=== PATIENT | female | born 2000 | race Caucasian/White ===

== ENCOUNTER → 2018-11-15 14:55 | Outpatient (CLI) | payer BC, SELFPAY ==
--- NOTE | 2018-11-15 15:02 | US_ITS ---
US transvaginal HISTORY: Dysfunctional uterine bleeding ITS.REASON: IRREGULAR PERIODS ORDERING PHYSICIAN: TRAM Aly PATIENT AGE: 18 years Comparison: None FINDINGS: The uterus is 6.4 x 2.4 x 3.6 cm with a combined endometrial thickness of 5 mm the uterus has an unremarkable appearance. The left ovary is 3.2 x 2.5 x 2.6 cm and has an estimated volume of 9.9 mL's with multiple small follicles . The right ovary is 4.5 x 2.3 x 2.7 cm and has multiple small follicles largest a 12 mm. Right ovarian volume is 14.5 mL's There is a small amount of cul-de-sac fluid. IMPRESSION: 1. Polycystic appearance of the ovaries. 2. Unremarkable appearing uterus. 3. Small amount of fluid in the cul-de-sac
== END ==
PROVIDERS: PCP Physician Assistant; Referring Provider Physician Assistant; Visit Provider Physician Assistant
DX: N92.6 Irregular menstruation, unspecified (principal)
CPT/HCPCS: 76830

== ENCOUNTER → 2018-12-22 17:01 | Outpatient (CLI) | payer BC, SELFPAY ==
[2018-12-25 18:03] LABS: Neisseria gonorrhoeae, NAA Negative (Negative)
== END ==
PROVIDERS: Visit Provider Obstetrics & Gynecology
DX: Z72.51 High risk heterosexual behavior (principal); N92.6 Irregular menstruation, unspecified
CPT/HCPCS: 87491; 87591

== ENCOUNTER 2019-01-08 16:59 | Observation (INO) ==
--- NOTE | 2019-01-08 17:16 | Emergency Department Note ---
ED Disposition Clinical Impression: Nausea vomiting and diarrhea, Intractable vomiting, Dehydration Disposition: Still a Patient Condition on Discharge: Fair - Critical Care Critical Care Time: No Attestation: On , the high probability of a clinically significant, sudden or life threatening deterioration of the following system(s) required my full and direct attention, intervention and personal management. The time I documented below is in addition to time spent performing reported procedures but includes the following listed in this critical care notation. Medical Decision Making - Travis Inquiry Pt receiving controlled substance: No Travis was queried for this patient: No Vital Signs: 01/08/19 17:10 Temperature 97.9 F Temperature Source Temporal Artery Scan Pulse Rate [Right Brachial] 63 Respiratory Rate 17 Blood Pressure [Right Arm] 131/63 Blood Pressure Mean [Right Arm] 85 Blood Pressure Source [Right Arm] Automatic Cuff Blood Pressure Position [Right Arm] Sitting 02 Sat by Pulse Oximetry 100 Oxygen Delivery Method Room Air - Lab Data Lab Results 01/08/19 17:17: WBC 12.5, RBC 5.21, Hgb 14.6, Hct 45.0, MCV 86.3, MCH 28.0, MCHC 32.5, RDW 12.9, Plt Count 281, MPV 8.0, Neut % (Auto) 86.9 H, Lymph % (Auto) 10.6, [place] % (Auto) 2.2, Eos % (Auto) 0.2, Baso % (Auto) 0.2, Neut # (Auto) 10.8 H, Lymph # (Auto) 1.3, [place] # (Auto) 0.3, Eos # (Auto) 0.0, Baso # (Auto) 0.0, Total Counted 100, Neutrophils % (Manual) 87 H, Band Neutrophils % 1.0, Lymphocytes % (Manual) 9 L, Monocytes % (Manual) 3, Platelet Estimate Normal, RBC Morphology Normal 01/08/19 17:17: Sodium 138, Potassium 3.5, Chloride 101, Carbon Dioxide 22, Anion Gap 18.5 H, BUN 13, Creatinine 0.89, Estimated Creat Clear 97, Estimated GFR 81, Est GFR ( Amer) 98, Glucose 115 H, Calcium 9.2, Magnesium 1.7, Total Bilirubin 0.3, AST 18, ALT 25, Alkaline Phosphatase 76, Total Protein 8.0, Albumin 3.9, Globulin 4.1 H, Albumin/Globulin Ratio 1.0 L, Amylase 93, Lipase 89, Plasma/Serum Alcohol 0 01/08/19 17:17: Serum HCG, Qual Negative Result diagrams: 01/08/19 17:17 01/08/19 17:17 Orders (Tests/Meds): ED MEDICATIONS Generic Name Dose Route Start Last Admin Trade Name Freq PRN Reason Stop Dose Admin Sodium Chloride 500 mls @ 999 mls/hr 01/08/19 17:30 01/08/19 17:27 Sod Chlor 0.9% 1000ml Bag IV 01/08/19 18:00 999 mls/hr .Q31M BRAULIO Administration Sodium Chloride 10 ml 01/08/19 17:21 Saline Flush 10ml Syringe IV 02/07/19 17:20 NEEDED PRN Maintain IV Site Discontinued Medications Generic Name Dose Route Start Last Admin Trade Name Freq PRN Reason Stop Dose Admin Diatrizoate Meglum/Diatrizoate Sod 30 ml 01/08/19 17:22 01/08/19 17:46 Gastrografin 66%-10% 30ml PO 01/08/19 17:23 Not Given ONCE ONE Famotidine 20 mg 01/08/19 17:21 01/08/19 17:27 Pepcid 20mg/2ml Vial IV 01/08/19 17:22 20 mg ONCE ONE Administration Ioversol 75 ml 01/08/19 18:14 01/08/19 18:26 Rad-Optiray 350 100ml Vial IV 01/08/19 18:15 75 ml ONCE ONE Administration Protocol Ketorolac Tromethamine 30 mg 01/08/19 17:21 01/08/19 17:27 Toradol 30mg/Ml Vial IV 01/08/19 17:22 30 mg ONCE ONE Administration Ondansetron HCl 4 mg 01/08/19 17:21 01/08/19 17:27 Zofran 4mg/2ml Vial IV 01/08/19 17:22 4 mg ONCE ONE Administration Sodium Chloride 8 ml 01/08/19 17:21 01/08/19 17:27 Saline Flush 10ml Syringe IV 01/08/19 17:22 8 ml ONCE ONE Administration Sodium Chloride 10 ml 01/08/19 18:14 01/08/19 18:26 Rad-Saline Flush 10ml Syringe IV 01/08/19 18:15 10 ml ONCE ONE Administration ORDERS Category Date Time Status CT abdomen pelvis w con Stat Cat Scan 01/08/19 17:22 Taken Drug Screen,Urine Stat Lab 01/08/19 17:19 Ordered Urinalysis and Microscopic Stat Lab 01/08/19 17:19 Ordered Medical Decision Narrative: Although, the patient received Zofran and Phenergan unable to tolerate the p.o. intake. Her CT scan was positive for colitis. To need to be nauseous she was given Reglan with good result but upon attempting p.o. intake she started heaving again. [address] Cruz was covered with Dr. Rios agreed to admit the patient for IV fluid therapy and anti-emetic. Abdominal Pain HPI - General Stated Complaint: vomiting, stomach spasms Time Seen by Provider: 01/08/19 17:13 Mode of Arrival: Ambulatory Source of Information: Patient, Parent(s) Limitations: No Limitations - History of Present Illness HPI narrative: 18 years old white female who developed upper abdominal pain followed by nausea, diarrhea x6 then repeated vomitings more than 10 since 9 AM. The patient had similar episodes in October following a alliance party with her friends and drinking alcohol she denies alcohol use this visit. She describes her pain is sharp rated 8/10 intense in the upper abdomen with no radiation. She is on control pills for irregular periods and Effexor due to anxiety. complaint: abdominal pain Onset (ago): hour(s) Consistency: constant Location: epigastric Severity: moderate Severity scale (1-10): 8 Relieving factors: nothing Exacerbating factors: nothing Associated symptoms: nausea, vomiting, diarrhea Treatments prior to arrival: other - Related Data LMP Date: 11/24/18 Home Medications Medication Instructions Recorded Confirmed drospirenone 3 mg-ethinyl PO #28 tab 12/22/18 12/22/18 estradiol 0.03 mg tablet venlafaxine ER 37.5 mg PO #90 cap 12/22/18 12/22/18 capsule,extended release 24 hr Allergies Allergy/AdvReac Type Severity Reaction Status Date / Time No Known Allergies Allergy Verified 12/22/18 16:13 [facility] History - Hepatitis A Screen Attestation statement:: This patient has been screened for Hepatitis A risk factors. I have reviewed the patient's past medical history: Yes Other Surgeries: Yes: No Previous Surgery - Social History Smoking Status: Current every day smoker Tobacco Type: e-cigarettes Alcohol Intake: current Alcohol Intake Frequency:: holidays/special occasions only Substance Use Type: denies use Occupational Status: employed Family Hx:: Cancer, Coronary Artery Disease, Heart Attack, Thyroid Disorder Comment: COPD ROS Obtained: Yes All systems reviewed & no additional complaints Physical Exam - General General appearance: alert, in no apparent distress - Head Head exam: atraumatic, normocephalic, normal inspection - Eye Eye exam: Present: normal appearance, PERRL, EOMI. Absent: scleral icterus, nystagmus - ENT ENT exam: Present: normal exam, normal oropharynx, mucous membranes dry, TM's normal bilaterally, normal external ear exam - Neck Neck exam: Present: normal inspection, full ROM, trachea midline. Absent: tenderness, meningismus, lymphadenopathy - Chest Chest inspection: Present: normal inspection, symmetric chest wall rise. Absent: tenderness - Respiratory Respiratory exam: Present: normal lung sounds bilaterally. Absent: respiratory distress - Cardiovascular Cardiovascular exam: Present: regular rate, normal rhythm, normal heart sounds. Absent: JVD - Abdominal Exam Abdominal exam: Present: soft, tenderness, normal bowel sounds, other (Voluntary guarding mild epigastric tenderness. ). Absent: distention, guarding, rebound, rigidity, Tobar's sign, tenderness at McBurney's Point - External exam: Present: normal external exam - Extremities Exam Extremities exam: Present: normal inspection, full ROM, normal capillary refill. Absent: calf tenderness - Back Exam Back exam: Present: normal inspection. Absent: tenderness, CVA tenderness (R), CVA tenderness (L) - Neurological Exam Neurological exam: Present: alert, oriented X3, CN II-XII intact, motor sensory deficit, reflexes normal - Psychiatric Psychiatric exam: Present: normal affect, normal mood, anxious - Skin Skin exam: Present: warm, dry, intact, normal color - Lymphatic Lymphatic Findings: no adenopathy
[2019-01-08 17:30] LABS: Basophils % 0.2 % (0.1-2.0); Eosinophils % 0.2 % (0.1-12.0); Hemoglobin 14.6 g/dL (12.2-16.2); Lymphocytes # 1.3 K/mm3 (0.7-4.5); Lymphocytes % 10.6 % (10-50); Mean Corpuscular HGB Conc 32.5 g/dL (31.8-35.4); Mean Corpuscular Volume 86.3 fl (81-99); Monocytes # 0.3 K/mm3 (0.1-1.0); Monocytes % 2.2 % (1.7-9.3); Neutrophils # 10.8 K/mm3 (1.8-7.8); Neutrophils % 86.9 % (37.0-80.0); Platelet Count 281 K/mm3 (142-424); Red Blood Count 5.21 M/mm3 (4.20-5.40); Red Cell Distribution Width 12.9 % (11.5-17.5); White Blood Count 12.5 K/mm3 (4.5-13.0)
[2019-01-08 17:45] LABS: Albumin Level 3.9 gm/dL (3.4-5.0); Anion Gap 18.5 mEq/L (5-15); Bilirubin,Total 0.3 mg/dL (0.2-1.0); Calcium 9.2 mg/dL (8.5-10.1); Globulin 4.1 gm/dl (1.3-3.2)
[2019-01-08 17:53] LABS: Lymphocytes % 9 % (10-50); Monocytes % 3 % (2-9); Neutrophils % 87 % (42-76); RBC Morphology Normal; Total Cells Counted 100
--- NOTE | 2019-01-09 00:07 | History & Physical Report ---
*Admission Date: 01/08/19 *Chief complaint: Nausea vomiting and diarrhea *History of present illness: This 18-year-old white female is admitted with nausea vomiting and diarrhea. Her symptoms started this morning and have continued to the day. Her vomiting became intractable. Her diarrhea was about 5 episodes this morning. She has had no bowel movement since she was admitted to the hospital. She has vomited twice since she came into the hospital. She is not running fever through the day. She denies the possibility of food poisoning though her white blood cell count is slightly elevated. She has not been around large groups of people or traveled with groups of people. She has had some previous episodes in the past of GI distress. Her father has had some GI problems. His history sounds like he may have had sphincter of Oddi dysfunction. [facility] History Medical History: Denies:: Cancer, Diabetes Mellitus Type 1, Diabetes Mellitus Type 2, MRSA *Have you ever received a pneumonia vaccine?: No *Have you received a flu vaccine this season?: No Other Medical History: Reports: Hormone Therapy ( control pills.) Other Surgeries: Yes: No Previous Surgery Amputation: No Fractures: No - *Social History Educational Level: Completed High School Smoking Status: Current every day smoker Tobacco Type: e-cigarettes # Packs/Day (cigarettes): 1 Alcohol Intake: current Alcohol Intake Frequency:: holidays/special occasions only Substance Use Type: denies use *Occupational Status:: employed Housing: house Household Members: family *Travel in the last 8 weeks: None - Psychiatric History Expresses thoughts of harming self/others: None Suicide Plan Description: No Plan Family Hx:: Thyroid Disorder Comment: Father with GI symptoms. Possible sphincter of Oddi dysfunction. Comment: Oral contraception. - Pediatric Specific History Comment: Current on pediatric immunizations. Review of Systems - Constitutional Reports anorexia, Denies fever(s) - Eyes Denies change in vision - *Cardiovascular Denies chest pain - *Gastrointestinal Reports cramping, Reports loose stools, Reports nausea, Denies vomiting blood - *Genitourinary Denies abnormal periods, Denies abnormal vaginal bleeding - *Musculoskeletal Denies joint pain - Integumentary/Breasts Reports unusual bruising (Some bruising of the legs noticed recently.) - Allergic/Immunologic Denies GI upset with certain foods Meds Home Medications Medication Instructions Recorded Confirmed Type drospirenone 3 mg-ethinyl 1 tab PO DAILY #28 tab 12/22/18 01/08/19 History estradiol 0.03 mg tablet venlafaxine ER 37.5 mg 1 tab PO DAILY #90 cap 12/22/18 01/08/19 History capsule,extended release 24 hr Allergies Allergy/AdvReac Type Severity Reaction Status Date / Time No Known Allergies Allergy Verified 12/22/18 16:13 Exam Vital signs and Labs for Last 24 Hours: Temp Pulse Resp BP Pulse Ox 98.5 F 89 17 120/70 98 01/08/19 20:11 01/08/19 20:11 01/08/19 20:11 01/08/19 20:11 01/08/19 20:11 Laboratory Results - last 24 hr 01/08/19 17:17: WBC 12.5, RBC 5.21, Hgb 14.6, Hct 45.0, MCV 86.3, MCH 28.0, MCHC 32.5, RDW 12.9, Plt Count 281, MPV 8.0, Neut % (Auto) 86.9 H, Lymph % (Auto) 10.6, [place] % (Auto) 2.2, Eos % (Auto) 0.2, Baso % (Auto) 0.2, Neut # (Auto) 10.8 H, Lymph # (Auto) 1.3, [place] # (Auto) 0.3, Eos # (Auto) 0.0, Baso # (Auto) 0.0, Total Counted 100, Neutrophils % (Manual) 87 H, Band Neutrophils % 1.0, Lymphocytes % (Manual) 9 L, Monocytes % (Manual) 3, Platelet Estimate Normal, RBC Morphology Normal 01/08/19 17:17: Sodium 138, Potassium 3.5, Chloride 101, Carbon Dioxide 22, Anion Gap 18.5 H, BUN 13, Creatinine 0.89, Estimated Creat Clear 97, Estimated GFR 81, Est GFR ( Amer) 98, Glucose 115 H, Calcium 9.2, Magnesium 1.7, Total Bilirubin 0.3, AST 18, ALT 25, Alkaline Phosphatase 76, Total Protein 8.0, Albumin 3.9, Globulin 4.1 H, Albumin/Globulin Ratio 1.0 L, Amylase 93, Lipase 89, Plasma/Serum Alcohol 0 01/08/19 17:17: Serum HCG, Qual Negative I & O for Last 24 hours: Intake & Output 01/06/19 01/07/19 01/08/19 01/09/19 11:59 11:59 11:59 11:59 Intake Total 1100 / 1100 Balance 1100 / 1100 Weight 137 lb 8 oz - Constitutional no acute distress - *Routine HEENT Exam Head: Present: normocephalic Eye: Present: PERRL ENT: Present: mucous membranes moist - *Routine Neck Exam Present: supple. Absent: thyromegaly, tenderness - Routine Chest/Breast/Axilla Exam Chest wall: Absent: tenderness Axillae: Absent: lymphadenopathy - *Routine Respiratory Exam Present: CTA bilaterally - *Routine Cardiovascular Exam Present: RRR - *Routine Abdominal Exam Present: soft. Absent: tenderness, distended, rebound, guarding - *Routine Rectal Exam Comments: Not done - *Routine Extremities Exam Absent: edema Comments: A few bruises of the thighs and lower legs are noted but nothing very remarkable. No petechial hemorrhage. - *Routine Neurological Exam Present: alert, oriented X3. Absent: altered mental status Assessment and Plan (1) Enterocolitis Current visit: Yes Status: Acute Category: Medical Code(s): K52.9 - Noninfective gastroenteritis and colitis, unspecified (2) Dehydration Current visit: Yes Status: Acute Category: Medical Code(s): E86.0 - Dehydration (3) Intractable vomiting Current visit: Yes Status: Acute Category: Medical Code(s): R11.10 - Vomiting, unspecified (4) Nausea vomiting and diarrhea Current visit: Yes Status: Acute Category: Medical Code(s): R11.2 - Nausea with vomiting, unspecified; R19.7 - Diarrhea, unspecified - Assessment and plan all Dx Assessment and Plan for all problems:: She is feeling much better with IV fluids and treatment with Phenergan and ondansetron. We do not have a diarrhea panel because she has not moved her bowels since admission. She is afebrile. I will hold off at present for antibiotic treatment
[2019-01-09 09:27] LABS: Basophils % 0.2 % (0.1-2.0); Hematocrit 38.1 % (37.0-47.0)
[2019-01-09 09:31] LABS: Anion Gap 13.1 mEq/L (5-15)
[2019-01-09 09:38] LABS: Eosinophils % 0.4 % (0.1-12.0); Lymphocytes # 2.7 K/mm3 (0.7-4.5); Lymphocytes % 31.6 % (10-50); Mean Corpuscular HGB Conc 32.9 g/dL (31.8-35.4); Mean Corpuscular Volume 87.7 fl (81-99); Mean Platelet Volume 7.8 fl (7.4-10.4); Monocytes # 0.6 K/mm3 (0.1-1.0); Monocytes % 6.6 % (1.7-9.3); Neutrophils # 5.3 K/mm3 (1.8-7.8); Neutrophils % 61.1 % (37.0-80.0); Platelet Count 229 K/mm3 (142-424); Red Blood Count 4.34 M/mm3 (4.20-5.40); White Blood Count 8.6 K/mm3 (4.5-13.0)
[2019-01-09 09:40] LABS: Calcium 7.3 mg/dL (8.5-10.1); Hemoglobin 12.5 g/dL (12.2-16.2)
--- NOTE | 2019-01-09 10:32 | Pharmacy Consult Notes ---
[facility] Pharmacy VTE Monitoring - Patient Demographics Admission date: 01/08/19 Report Date: 01/09/19 Time: 10:32 Allergies/Adverse Reactions: Patient Allergies No Known Allergies Allergy (Verified 12/22/18 16:13) Height: 1.7 m Weight: 63.503 kg Patient Problems: Current Active Problems (Updated 01/09/19 @ 00:15 by Chriss Cruz MD) Nausea vomiting and diarrhea (Acute) Intractable vomiting (Acute) Dehydration (Acute) Enterocolitis (Acute) - VTE Risk Labs: VTE Related Lab Results Hgb 12.5 g/dL (12.2-16.2) D 01/09/19 09:12 Hct 38.1 % (37.0-47.0) 01/09/19 09:12 Plt Count 229 K/mm3 (142-424) 01/09/19 09:12 BUN 8 mg/dL (7-18) D 01/09/19 09:12 Creatinine 0.82 mg/dL (0.55-1.02) 01/09/19 09:12 Estimated Creat Clear 110 mL/min (50-200) 01/09/19 09:12 VTE Score: 2 - Prophylaxis VTE Prophylaxis Ordered?: Yes Types of VTE Prophylaxis: TEDS Knee High Location of Applied Device: Bilateral Lower Extremeties - VTE Diagnosis Confirmed Treatment or plan recommended: Continue Current Treatment
--- NOTE | 2019-01-09 13:10 | Progress Note ---
Internal Medicine - PN: Bernardo *Date: 01/09/19 *Time: 13:08 Interval history: She feels much better. She slept. She has not had diarrhea and thus we have not had a PCR panel. Her white blood cell count is normal this morning. Potassium is low at 3.1 and she is given an oral dose of 20 mEq. Exam Vital signs and Labs for Last 24 Hours: Temp Pulse Resp BP Pulse Ox 98.2 F 67 14 92/52 L 98 01/09/19 08:00 01/09/19 08:00 01/09/19 08:00 01/09/19 08:00 01/09/19 08:39 Laboratory Results - last 24 hr 01/08/19 17:17: WBC 12.5, RBC 5.21, Hgb 14.6, Hct 45.0, MCV 86.3, MCH 28.0, MCHC 32.5, RDW 12.9, Plt Count 281, MPV 8.0, Neut % (Auto) 86.9 H, Lymph % (Auto) 10.6, [place] % (Auto) 2.2, Eos % (Auto) 0.2, Baso % (Auto) 0.2, Neut # (Auto) 10.8 H, Lymph # (Auto) 1.3, [place] # (Auto) 0.3, Eos # (Auto) 0.0, Baso # (Auto) 0.0, Total Counted 100, Neutrophils % (Manual) 87 H, Band Neutrophils % 1.0, Lymphocytes % (Manual) 9 L, Monocytes % (Manual) 3, Platelet Estimate Normal, RBC Morphology Normal 01/08/19 17:17: Sodium 138, Potassium 3.5, Chloride 101, Carbon Dioxide 22, Anion Gap 18.5 H, BUN 13, Creatinine 0.89, Estimated Creat Clear 97, Estimated GFR 81, Est GFR ( Amer) 98, Glucose 115 H, Calcium 9.2, Magnesium 1.7, Total Bilirubin 0.3, AST 18, ALT 25, Alkaline Phosphatase 76, Total Protein 8.0, Albumin 3.9, Globulin 4.1 H, Albumin/Globulin Ratio 1.0 L, Amylase 93, Lipase 89, Plasma/Serum Alcohol 0 01/08/19 17:17: Serum HCG, Qual Negative 01/09/19 09:12: WBC 8.6 D, RBC 4.34, Hgb 12.5 D, Hct 38.1, MCV 87.7, MCH 28.9, MCHC 32.9, RDW 13.0, Plt Count 229, MPV 7.8, Neut % (Auto) 61.1, Lymph % (Auto) 31.6, [place] % (Auto) 6.6, Eos % (Auto) 0.4, Baso % (Auto) 0.2, Neut # (Auto) 5.3, Lymph # (Auto) 2.7, [place] # (Auto) 0.6, Eos # (Auto) 0.0, Baso # (Auto) 0.0 01/09/19 09:12: Sodium 145, Potassium 3.1 L, Chloride 110 H, Carbon Dioxide 25, Anion Gap 13.1, BUN 8 D, Creatinine 0.82, Estimated Creat Clear 110, Estimated GFR 89, Est GFR ( Amer) 108, Glucose 119 H, Calcium 7.3 L D I & O for Last 24 hours: Intake & Output 01/07/19 01/08/19 01/09/19 01/10/19 11:59 11:59 11:59 11:59 Intake Total 1100 / 1100 Balance 1100 / 1100 Weight 140 lb - Constitutional no acute distress - *Routine Respiratory Exam Present: CTA bilaterally - *Routine Cardiovascular Exam Present: RRR - *Routine Abdominal Exam Present: soft, normoactive bowel sounds. Absent: tenderness - *Routine Extremities Exam Absent: edema - *Routine Neurological Exam Present: alert, oriented X3 Assessment and Plan (1) Enterocolitis Current visit: Yes Status: Acute Category: Medical Code(s): K52.9 - Noninfective gastroenteritis and colitis, unspecified (2) Dehydration Current visit: Yes Status: Acute Category: Medical Code(s): E86.0 - Dehydration (3) Intractable vomiting Current visit: Yes Status: Acute Category: Medical Code(s): R11.10 - Vomiting, unspecified (4) Nausea vomiting and diarrhea Current visit: Yes Status: Acute Category: Medical Code(s): R11.2 - Nausea with vomiting, unspecified; R19.7 - Diarrhea, unspecified - Assessment and plan all Dx Assessment and Plan for all problems:: We will advance diet. If tolerated she may be discharged later on today.
--- NOTE | 2019-01-10 22:21 | Discharge Summary ---
General - General Admission date:: 01/08/19 Discharge date: 01/09/19 HPI HPI: This 18-year-old white female is admitted with nausea vomiting and diarrhea. Her symptoms started this morning and have continued to the day. Her vomiting became intractable. Her diarrhea was about 5 episodes this morning. She has had no bowel movement since she was admitted to the hospital. She has vomited twice since she came into the hospital. She is not running fever through the day. She denies the possibility of food poisoning though her white blood cell count is slightly elevated. She has not been around large groups of people or traveled with groups of people. She has had some previous episodes in the past of GI distress. Her father has had some GI problems. His history sounds like he may have had sphincter of Oddi dysfunction. Hospital Course Hospital Course: The patient's abdominal and pelvic CT showed a mild degree of colitis. She felt much better after IV fluids and treatment with Phenergan and Zofran. A diarrhea panel was not collected because she had not moved her bowels since admission. Her white blood cell count normalized. Her potassium was low at 3.1, therefore she was given an oral dose of 20 mEq of potassium. Her diet was advanced and she tolerated this well and was stable to be discharged home on Zofran. Objective Vital signs: Temp Pulse Resp BP Pulse Ox 98.2 F 67 14 92/52 L 98 01/09/19 08:00 01/09/19 08:00 01/09/19 08:00 01/09/19 08:00 01/09/19 08:39 Narrative: - Constitutional no acute distress - *Routine HEENT Exam Head: Present: normocephalic Eye: Present: PERRL ENT: Present: mucous membranes moist - *Routine Neck Exam Present: supple. Absent: thyromegaly, tenderness - Routine Chest/Breast/Axilla Exam Chest wall: Absent: tenderness Axillae: Absent: lymphadenopathy - *Routine Respiratory Exam Present: CTA bilaterally - *Routine Cardiovascular Exam Present: RRR - *Routine Abdominal Exam Present: soft. Absent: tenderness, distended, rebound, guarding - *Routine Rectal Exam Comments: Not done - *Routine Extremities Exam Absent: edema Comments: A few bruises of the thighs and lower legs are noted but nothing very remarkable. No petechial hemorrhage. - *Routine Neurological Exam Present: alert, oriented X3. Absent: altered mental status DS: Diagnosis - Discharge Diagnosis (1) Enterocolitis Status: Acute (2) Dehydration Status: Acute (3) Intractable vomiting Status: Acute (4) Nausea vomiting and diarrhea Status: Acute Discharge Plan - Patient Discharge Instructions ACTIVITY: Continue current activity DIET: advance to your usual diet Patient Instructions: Dehydration, DI for Dehydration -- Adult, DI for Nausea -- Adult, Nausea and Vomiting-Adult - Follow up Plan Follow up with: Matti Rios MD [Staff Physician] - (3 days) Disposition: Home, Self-Alf Medications: Home Medications Medication Instructions Recorded Confirmed Type drospirenone 3 mg-ethinyl 1 tab PO DAILY #28 tab 12/22/18 01/08/19 History estradiol 0.03 mg tablet venlafaxine ER 37.5 mg 37.5 mg PO DAILY #90 cap 12/22/18 01/09/19 History capsule,extended release 24 hr Prescriptions/Medication Reconciliation: Continued venlafaxine ER 37.5 mg capsule,extended release 24 hr 37.5 mg PO DAILY #90 cap drospirenone 3 mg-ethinyl estradiol 0.03 mg tablet 1 tab PO DAILY #28 tab
== END 2019-01-09 14:29 | disposition home or self-care (01) ==
LOC: 2ND 16:59 → ER 16:59 → 2ND 20:07
PROVIDERS: ADMIT Family Medicine; ATTEND Family Medicine
DX: K52.9 Noninfective gastroenteritis and colitis, unspecified; Z79.899 Other long term (current) drug therapy; E86.0 Dehydration; Z72.0 Tobacco use
CPT/HCPCS: 74177; 80048; 80053; 82150; 83690; 83735; 84703; 85007; 85025; 96365; 96375; 96376; 99284; G0378; J2405; Q9967

== ENCOUNTER → 2019-01-15 11:03 | Outpatient (CLI) | payer BC, SELFPAY ==
[2019-01-15 13:30] LABS: Adenovirus F 40/41, stool Not Detected (NotDetected); Astrovirus Not Detected (NotDetected); Cryptosporidium Not Detected (NotDetected); Cyclospora Cayetanesis Not Detected (NotDetected); Entamoeba histolytica Not Detected (NotDetected); Enteroaggregative E coli Not Detected (NotDetected); Enterotoxigenic E coli Not Detected (NotDetected); Giardia lamblia Not Detected (NotDetected); Norovirus Not Detected (NotDetected); Plesimonas Shigalloides, PCR Not Detected (NotDetected); Rotavirus A Not Detected (NotDetected); Salmonella, PCR Not Detected (NotDetected); Sapovirus Not Detected (NotDetected); Shiga-like toxin E coli Not Detected (NotDetected); Shigella Enterovasive E coli Not Detected (NotDetected); Vibrio Cholerae Not Detected (NotDetected); Vibrio, PCR Not Detected (NotDetected); Yersinia Entercolitica, PCR Not Detected (NotDetected)
[2019-01-15 13:32] LABS: Campylobacter Not Detected (NotDetected); Clostridium Difficile A/B, PCR Not Detected (NotDetected)
[2019-01-15 16:23] LABS: Enteropathogenic E coli Detected (NotDetected)
== END ==
PROVIDERS: Visit Provider Physician Assistant
DX: K52.9 Noninfective gastroenteritis and colitis, unspecified (principal)
CPT/HCPCS: 87507

== ENCOUNTER → 2019-02-12 13:37 | Outpatient (CLI) | payer BC, SELFPAY | PROVIDERS: PCP Physician Assistant; Visit Provider Physician Assistant | DX: Z72.51 High risk heterosexual behavior (principal) ==

== ENCOUNTER → 2019-03-09 10:30 | Outpatient (CLI) | payer BC, SELFPAY ==
[2019-03-09 10:35] LABS: Adenovirus F 40/41, stool Not Detected (NotDetected); Astrovirus Not Detected (NotDetected); Campylobacter Not Detected (NotDetected); Clostridium Difficile A/B, PCR Not Detected (NotDetected); Cryptosporidium Not Detected (NotDetected); Cyclospora Cayetanesis Not Detected (NotDetected); Entamoeba histolytica Not Detected (NotDetected); Enteroaggregative E coli Not Detected (NotDetected); Enteropathogenic E coli Not Detected (NotDetected); Enterotoxigenic E coli Not Detected (NotDetected); Giardia lamblia Not Detected (NotDetected); Norovirus Not Detected (NotDetected); Plesimonas Shigalloides, PCR Not Detected (NotDetected); Rotavirus A Not Detected (NotDetected); Salmonella, PCR Not Detected (NotDetected); Sapovirus Not Detected (NotDetected); Shiga-like toxin E coli Not Detected (NotDetected); Shigella Enterovasive E coli Not Detected (NotDetected); Vibrio Cholerae Not Detected (NotDetected); Vibrio, PCR Not Detected (NotDetected); Yersinia Entercolitica, PCR Not Detected (NotDetected)
== END ==
PROVIDERS: Visit Provider Physician Assistant
DX: R19.7 Diarrhea, unspecified (principal)
CPT/HCPCS: 87507

== ENCOUNTER 2020-07-10 12:33 | Emergency (ER) | payer BC, SELFPAY ==
--- NOTE | 2020-07-10 12:46 | HMH.EDUTC ---
[facility] [place] Clinical Impression: Strep throat Disposition: Home, Self-Care Condition on Discharge: Good Instructions: Strep Throat, DI for Strep Throat Additional Instructions: Drink plenty of fluids. Take tylenol or ibuprofen for pain or fever. Take the medications as directed. Follow up with your regular doctor. GO TO THE ER FOR ANY WORSENING SYMPTOMS Buy yourself a new tooth brush. Prescriptions: Amoxicillin [Amoxicillin 500mg Tab] 500 mg PO TID 10 Days #30 tab Transmission Status: Received by [facility] #[id number] Referrals: Matti Rios MD [Primary Care Provider] - Forms: Work/School Release Time of Disposition: 13:31 Medical Decision Making - Medical Records Medical records reviewed: No: I reviewed the patient's medical records. - Travis Inquiry Pt receiving controlled substance: No Vital Signs: 07/10/20 13:00 07/10/20 13:23 Temperature 98.9 F 98.9 F Temperature Source Oral Pulse Rate 76 Pulse Rate [Left] 76 Respiratory Rate 19 19 Blood Pressure 119/77 Blood Pressure [Right Arm] 119/77 Blood Pressure Mean [Right Arm] 91 Blood Pressure Source [Right Arm] Automatic Cuff Blood Pressure Position [Right Arm] Sitting 02 Sat by Pulse Oximetry 99 Oxygen Delivery Method Room Air - Lab Data Lab results reviewed: Yes: I reviewed the patient's lab results. Orders (Tests/Meds): ORDERS Category Date Time Status Covid-19 Nasal PCR Sendout P&C Stat Lab 07/10/20 12:50 [place] [facility] [place] - General Stated complaint: covid exposure, fever Time Seen by Provider: 07/10/20 13:15 - History of Present Illness Provider Complaint: She c/o sore throat since yesterday. She has also been running a fever. She was exposed to covid last week. She denies any cough, congestion and body aches. - Related Data Home Medications Medication Instructions Recorded Confirmed drospirenone 3 mg-ethinyl 1 tab PO DAILY #28 tab 12/22/18 01/08/19 estradiol 0.03 mg tablet venlafaxine 37.5 mg 37.5 mg PO DAILY #90 cap 12/22/18 01/09/19 capsule,extended release 24 hr Previous Rx's Medication Instructions Recorded Amoxicillin [Amoxicillin 500mg Tab] 500 mg PO TID 10 Days #30 tab 07/10/20 Allergies Allergy/AdvReac Type Severity Reaction Status Date / Time No Known Allergies Allergy Verified 07/10/20 13:03 [facility] History - Hepatitis A Screen Attestation statement:: This patient has been screened for Hepatitis A risk factors. I have reviewed the patient's past medical history: Yes Medical History: Denies:: Cancer, Diabetes Mellitus Type 1, Diabetes Mellitus Type 2, MRSA Other Medical History: Reports: Hormone Therapy ( control pills.) Other Surgeries: Yes: No Previous Surgery Amputation: No Fractures: No - Social History Smoking Status: Current every day smoker Tobacco Type: e-cigarettes # Packs/Day (cigarettes): 1 Alcohol Intake: current Alcohol Intake Frequency:: holidays/special occasions only Substance Use Type: denies use Occupational Status: employed Housing: house Household Members: family Family Hx:: Thyroid Disorder Comment: Father with GI symptoms. Possible sphincter of Oddi dysfunction. Comment: Oral contraception. - Pediatric Specific History Comment: Current on pediatric immunizations. ROS Obtained: Yes All systems reviewed & no additional complaints - Constitutional Constitutional: Reports chills, Reports fever(s), Reports poor appetite, Reports malaise - Eyes Eyes: Denies eye discharge - ENT Ears, Nose, Mouth, and Throat: Reports as per HPI - Cardiovascular Cardiovascular: Denies chest pain - Respiratory Respiratory: No chest congestion, No cough - Gastrointestinal Gastrointestingal: Reports: nausea Physical Exam - General General appearance: alert, in no apparent distress - Head Head exam: atraumatic, normocephalic, normal inspection - Eye Eye exam: Present: normal appearance, PERRL, EOM
[2020-07-10 13:00] VITALS: BP 119/77; PULSE 76; RESP 19; TEMP 37.2; O2SAT 99; BMI 21.7
[2020-07-10 13:23] VITALS: BP 119/77; PULSE 76; RESP 19; TEMP 37.2; O2SAT 99
[2020-07-10 19:03] LABS: UTC Influenza A Antigen Negative (Negative)
[2020-07-10 19:04] LABS: UTC Influenza B Antigen Negative (Negative)
[2020-07-10 19:05] LABS: UTC Strep Screen (Rapid) Negative (Negative)
[2020-07-11 10:35] LABS: Covid-19 Nasal PCR Sendout P&C Negative
== END 2020-07-10 13:36 | disposition home or self-care (01) ==
PROVIDERS: Emergency Provider Nurse Practitioner Family; PCP Family Medicine
DX: J02.0 Streptococcal pharyngitis (principal); Z20.828 Contact with and (suspected) exposure to other viral communicable diseases; F17.290 Nicotine dependence, other tobacco product, uncomplicated
CPT/HCPCS: 87804; 87880; 99202; U0004

== ENCOUNTER → 2020-11-06 15:06 | Outpatient (POV) | payer BC, SELFPAY | PROVIDERS: Visit Provider Dermatology | DX: Z00.00 Encounter for general adult medical examination without abnormal findings (principal) ==

== ENCOUNTER → 2022-05-21 16:48 | Outpatient (CLI) | payer BC, SELFPAY ==
[2022-05-21 17:21] LABS: Coronavirus 19, PCR Not Detected (NotDetected); Influenza A, PCR Not Detected (NotDetected); Influenza B, PCR Not Detected (NotDetected)
== END ==
PROVIDERS: PCP Physician Assistant; Visit Provider Family Medicine
DX: J06.9 Acute upper respiratory infection, unspecified (principal)
CPT/HCPCS: C9803; U0003; U0005